=== PATIENT | female | born 1995 | race Hispanic/Latino ===

== ENCOUNTER 2022-07-19 14:44 | Emergency (ER) | payer OTHER ==
[2022-07-19] MEDS ORDERED: PREDNISONE20 MG PO (15:59)
[2022-07-19] MEDS ORDERED: FAMOTIDINE20 MG PO (15:59)
[2022-07-19] MEDS ORDERED: HYDROXYZINE HCL25 MG PO (15:59)
[2022-07-19 16:10] VITALS: BP 150/87; PULSE 82; RESP 16; TEMP 97.3; O2SAT 99
[2022-07-19] MEDS ORDERED: SODIUM CHLORIDE FLUSH 10 ML SYR INJ PRN (16:15)
[2022-07-19] MEDS ORDERED: SODIUM CHLORIDE 0.9% 1000ML 1,000 ML IV SCH (16:15)
== END 2022-07-19 16:06 | disposition home or self-care (01) ==
LOC: FSED 15:35
DX: R07.0 Pain in throat (principal); L23.5 Allergic contact dermatitis due to other chemical products; Y93.E9 Activity, other interior property and clothing maintenance; Y92.89 Other specified places as the place of occurrence of the external cause
CPT/HCPCS: 99283